=== PATIENT | female | born 1950 | race Caucasian/White ===

== ENCOUNTER 2017-10-19 14:01 | Outpatient (CLI) | payer MEDICARE, BC | END 2017-10-19 14:02 | disposition home or self-care (01) | LOC: BICBD 14:01 | PROVIDERS: ATTEND Internal Medicine Rheumatology | DX: M81.0 Age-related osteoporosis without current pathological fracture (principal); M85.80 Other specified disorders of bone density and structure, unspecified site | CPT/HCPCS: 77080 ==

== ENCOUNTER 2017-11-08 15:52 | Outpatient (CLI) | payer MEDICARE, BC | END 2017-11-08 15:53 | disposition home or self-care (01) | LOC: BICRAD 15:52 | PROVIDERS: ATTEND Internal Medicine Rheumatology | DX: M06.832 Other specified rheumatoid arthritis, left wrist (principal); M25.432 Effusion, left wrist; S63.072A Subluxation of distal end of left ulna, initial encounter; M11.232 Other chondrocalcinosis, left wrist ==

== ENCOUNTER 2018-04-21 13:47 | Outpatient (CLI) | payer MEDICARE, BC | END 2018-04-21 13:48 | disposition home or self-care (01) | LOC: BICMAMMO 13:47 | PROVIDERS: ATTEND Internal Medicine | DX: Z12.31 Encounter for screening mammogram for malignant neoplasm of breast (principal) | CPT/HCPCS: 77063; 77067 ==

== ENCOUNTER 2019-07-24 05:40 | Day surgery (SDC) | payer MEDICARE, BC ==
[2019-07-21 12:27] VITALS: BMI 20.9
[2019-07-24] MEDS ORDERED: Fentanyl 250 MCG/5 ML VIAL ONE (06:49)
[2019-07-24] MEDS ORDERED: Thrombin 5000 UNITS/5 ML VIAL ONE (07:06)
[2019-07-24] MEDS ORDERED: Bupivacaine HCl 0.5%/Epinephrine 1:200,000/PF 30 ml Vial ONE (07:06)
[2019-07-24] MEDS ORDERED: Fentanyl 100 MCG/2 ML VIAL ONE (08:46)
--- NOTE | 2019-07-24 10:19 | OP ---
DATE OF PROCEDURE: 07/24/2019 [employer] SERGEANT: Chava Crowder PA-C INDICATION: Pain. DIAGNOSIS: Lumbar stenosis. PROCEDURE PERFORMED: L4-L5 lumbar decompression. ANESTHESIA: General. DESCRIPTION OF PROCEDURE: The patient was brought into the operating room and placed under general anesthesia. She was flipped from the supine to prone position on the operating room table. A linear incision was planned over the L4-L5 segment. After prepping and draping and after an appropriate preoperative pause, the incision was created. The soft tissues were swept away from midline. Self-retaining retractors were placed in the wound for optimal exposure. After confirming the appropriate level with C-arm fluoroscopy, an Adson rongeur was used to remove the spinous process along the inferior aspect of L4 and the superior aspect of L5. A high-speed cutting drill bit as well as 2, 3, and 4 mm Kerrisons were used to complete the laminectomy at this segment. The laminectomy was extended laterally to encompass the medial third of the facet joints bilaterally in order to adequately decompress the lateral recesses. After decompressing the L4-L5 segment, the wound was irrigated. Hemostasis was maintained throughout. The wound was then closed in anatomic layers and a pressure dressing was applied. There were no known procedural complications. Job ID: [id number]
[2019-07-24] MEDS ORDERED: HYDROcodone/Acetaminophen 5/325 mg Tablet ONE (12:22)
[2019-07-24] MEDS ORDERED: Lidocaine 1% PF 5 ML VIAL ONE (12:36)
[2019-07-24] MEDS ORDERED: PHENYLEPHRINE-NS 100 MCG/ML 10 ML SYRINGE ONE (12:36)
[2019-07-24] MEDS ORDERED: Dexamethasone 20 MG/5 ML VIAL ONE (12:36)
[2019-07-24] MEDS ORDERED: Ondansetron PF 4 MG/2 ML Vial ONE (12:36)
[2019-07-24] MEDS ORDERED: PROPOFOL 200 MG/20 ML VIAL ONE (12:36)
[2019-07-24] MEDS ORDERED: Glycopyrrolate 0.2 MG/ML 5 ML SYRINGE ONE (12:36)
[2019-07-24] MEDS ORDERED: Rocuronium Bromide 10 MG/ML (10ML VIAL) ONE (12:36)
== END 2019-07-24 12:30 | disposition home or self-care (01) ==
LOC: SDC 05:40
PROVIDERS: ATTEND Neurological Surgery
PROC: 01NB0ZZ Release Lumbar Nerve, Open Approach (ICD-10-PCS; principal; 2019-07-24)
DX: M48.062 Spinal stenosis, lumbar region with neurogenic claudication (principal)
CPT/HCPCS: 76000; J0670; J0690; J1100; J2001; J2405; J2704; J3010

== ENCOUNTER 2019-09-18 12:24 | Outpatient (CLI) | payer MEDICARE, BC ==
--- NOTE | 2019-09-18 13:47 | CT ---
EXAM: CT Pelvis WO Con PROVIDED CLINICAL HISTORY: Pelvic fracture. Pain the region of the symphysis pubis. COMPARISON: MRI lumbar spine on 05/25/2019 and views right hip on 08/23/2019. FINDINGS: There is a nondisplaced fracture involving the right superior pubic ramus with adjacent sclerosis wit h adjacent increased density focus which may related to minimal callus formation about the fracture. There are also evidence of 2 separate healing fractures involving the right inferior pubic ramus 1 which is near the junction with the right pubic bone. Prominent degenerative changes are seen involving the pubic symphysis. No additional pelvic fracture is appreciated, and there is no evidence of a hip dislocation. No hip fracture is seen. There is mild bilateral hip osteoarthritis present. There is a burst fracture involving the L5 vertebral body with retropulsion of the posterior superior endplate at this level. There is also evidence of fractures involving the inferior L4 facets. There is resultant grade 1 anterolisthesis of L4 on L5. There is evidence of a laminectomy defect at the L4-5 level with decreased density seen posterior to thecal sac probably related to scarring. 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 Vascular calcifications are seen in the abdominal aorta and involving the iliac arteries. There is atrophy and fatty replacement of the gluteal musculature bilaterally. Urinary bladder is incompletely distended. IMPRESSION: 1. Healing nondisplaced fractures of the right superior and inferior pubic rami. 2. Burst fracture L5 vertebral body as well as fractures involving the inferior facets of the L4 vert ebral body and resultant grade 1 anterolisthesis of L4 on L5. These findings were seen on MRI lumbar spine on 05/25/2019, but the degree of anterolisthesis of L4 on L5 that does appear progressed w hen compared to the prior study with degree of anterolisthesis measuring approximately 8 mm.
== END 2019-09-18 12:25 | disposition home or self-care (01) ==
LOC: SCSCT 12:24
PROVIDERS: ATTEND Neurological Surgery
DX: S32.511D Fracture of superior rim of right pubis, subsequent encounter for fracture with routine healing (principal); S32.591D Other specified fracture of right pubis, subsequent encounter for fracture with routine healing; S32.051D Stable burst fracture of fifth lumbar vertebra, subsequent encounter for fracture with routine healing; S32.041D Stable burst fracture of fourth lumbar vertebra, subsequent encounter for fracture with routine healing; M43.16 Spondylolisthesis, lumbar region
CPT/HCPCS: 72192

== ENCOUNTER 2019-11-15 10:43 | Outpatient (CLI) | payer MEDICARE, BC ==
--- NOTE | 2019-11-15 11:41 | MMO ---
Bilateral MAMMO Bilat Screen [facility]. CLINICAL HISTORY: Patient is 69 years old and is seen for screening. VIEWS: The views performed were: . FILMS COMPARED: The present examination has been compared to a prior imaging study performed at [facility] on 04/21/2018. This study has been interpreted with the assistance of computer-aided detection. MAMMOGRAM FINDINGS: There are scattered fibroglandular densities. There are no suspicious masses, suspicious calcifications, or new areas of architectural distortion. IMPRESSION: THERE IS NO MAMMOGRAPHIC EVIDENCE OF MALIGNANCY. A ROUTINE FOLLOW-UP MAMMOGRAM IN 1 YEAR IS RECOMMENDED. THE RESULTS OF THIS EXAM WERE SENT TO THE PATIENT. ACR BI-RADS Category 1 - Negative MAMMOGRAPHY NOTE: 1. A negative mammogram report should not delay a biopsy if a dominant of clinically suspicious mass is present. 2. Approximately 10% to 15% of breast cancers are not detected by mammography. 3. Adenosis and dense breasts may obscure an underlying neoplasm. Reported by: PETRA CONTRERAS MD Electonically Signed: [id number]
--- NOTE | 2019-11-15 12:07 | BD ---
EXAM: DEXA bone density examination HISTORY: 69-year-old postmenopausal female for screening COMPARISON: None FINDINGS: L1--bone mineral density 0.809 g/sq cm; T score -1.6 L2--bone mineral density 0.999 g/sq cm; T score -0.3 L3--bone mineral density 1.076 g/sq cm; T score -0.1 L4--bone mineral density 0.936 g/sq cm; T score -1.1 Total L1-L4--bone mineral density 0.950 g/sq cm; T score -0.9 Right femoral neck--bone mineral density0.675; T score -1.6 Total proximal right femur--bone mineral density 0.792; T score -1.2 Left femoral neck--bone mineral density0.637; T score -1.9 Total proximal left femur--bone mineral density 0.771; T score -1.4 IMPRESSION: Osteopenia. This patient has a 10 year WHO fracture risk of a major osteoporotic fracture of 20% and of a hip fracture of 3.6%.
== END 2019-11-15 10:44 | disposition home or self-care (01) ==
LOC: BICMAMMO 10:43
PROVIDERS: ATTEND Internal Medicine Rheumatology
DX: Z12.31 Encounter for screening mammogram for malignant neoplasm of breast (principal); M81.0 Age-related osteoporosis without current pathological fracture; M05.79 Rheumatoid arthritis with rheumatoid factor of multiple sites without organ or systems involvement; M85.89 Other specified disorders of bone density and structure, multiple sites
CPT/HCPCS: 77063; 77067; 77080

== ENCOUNTER 2021-11-19 10:53 | Outpatient (CLI) | payer MEDICARE, BC | END 2021-11-19 10:54 | disposition home or self-care (01) | LOC: BICMAMMO 10:53 | PROVIDERS: ATTEND Internal Medicine Rheumatology | DX: M81.0 Age-related osteoporosis without current pathological fracture (principal); M85.851 Other specified disorders of bone density and structure, right thigh; M85.852 Other specified disorders of bone density and structure, left thigh | CPT/HCPCS: 77080 ==

== ENCOUNTER 2024-10-08 18:15 | Inpatient (IN) | payer MEDICARE, BC ==
[2024-10-08 18:56] LABS: Hemoglobin 13.6 g/dL (12.0-16.0); Mean Corpuscular HGB CONC 31.6 g/dL (32.0-36.0); Mean Corpuscular Hemoglobin 27.1 pg (27.0-31.0); Mean Corpuscular Volume 85.7 fL (78.0-98.0); Mean Platelet Volume 9.7 fL (7.4-10.4); Platelet Count 255 10x3/uL (130-400); RBC Distribution Width 14.2 % (11.5-14.5); Red Blood Cell (RBC) Count 5.02 mill/uL (4.20-5.40)
[2024-10-08 18:59] LABS: INR-International Normal Ratio 1.1; PTT 32.3 sec (22.9-36.1); Prothrombin Time 13.7 sec (12.0-14.7)
[2024-10-08 19:06] LABS: ALT (SGPT) 11 U/L (8-55); AST (SGOT) 12 U/L (5-34); Albumin 3.1 g/dL (3.4-4.8); Alkaline Phosphatase 141 U/L (40-110); Anion Gap 16 mmol/L (10-20); BUN (Urea Nitrogen) 22 mg/dL (9.8-20.1); Bilirubin, Total 0.4 mg/dL (0.2-1.2); Calc. Creatinine Clearance 0 mL/min (70-130); Calcium 8.8 mg/dL (7.8-10.44); Carbon Dioxide 27 mmol/L (23-31); Chloride 100 mmol/L (98-107); Estimated GFR 97; Globulin 3.4 g/dL (2.4-3.5); Glucose 103 mg/dL (83-110); Magnesium 2.1 mg/dL (1.6-2.6); Potassium 3.3 mmol/L (3.5-5.1); Protein, Total 6.5 g/dL (5.8-8.1); Sodium 140 mmol/L (136-145)
[2024-10-08 19:09] LABS: Troponin I 0.042 ng/mL (< 0.028)
[2024-10-08 19:27] LABS: Anisocytosis SLIGHT = 6-15 cells HPF (0-5); Large Platelets 3.9 % (0-5); Lymphocytes 8 % (21-51); Monocytes 8 % (0-10); Neutrophil 84 % (42-75); Ovalocytes SLIGHT = 2-5 cells HPF (0-1); Platelet Adequacy Comment Platelets Normal; Polychromasia SLIGHT = 2-3 cells HPF (0-2)
[2024-10-08] MEDS ORDERED: Lactated Ringer's 1,000 ML IV SCH ×2 (20:15→21:00)
[2024-10-08] MEDS ORDERED: Aspirin Chewable 81 MG TAB ONE (20:19)
[2024-10-08] MEDS: Potassium Chloride 20 MEQ TAB PO SCH (21:57)
[2024-10-08 22:31] LABS: Troponin I 0.052 ng/mL (< 0.028)
[2024-10-09 01:08] LABS: Troponin I 0.054 ng/mL (< 0.028)
[2024-10-09] MEDS: Acetaminophen 325 MG TAB PO PRN (03:41)
[2024-10-09] MEDS: Albuterol 200 PUFF (6.7GM INHALER) INH PRN (03:51)
[2024-10-09 03:59] VITALS: BMI 17.4
[2024-10-09 04:20] LABS: #Basophils 0.05 10x3/uL (0.0-0.2); %Basophils 0.7 % (0.0-1.0); %Eosinophils 1.6 % (0.0-10.0); %Lymphocytes 18.5 % (21.0-51.0); %Monocytes 10.6 % (0.0-10.0); %Neutrophils 68.2 % (42.0-75.0); Hematocrit 41.2 % (36.0-47.0); Hemoglobin 13.1 g/dL (12.0-16.0); Mean Corpuscular HGB CONC 31.8 g/dL (32.0-36.0); Mean Corpuscular Hemoglobin 27.6 pg (27.0-31.0); Mean Corpuscular Volume 86.7 fL (78.0-98.0); Mean Platelet Volume 9.6 fL (7.4-10.4); Platelet Count 278 10x3/uL (130-400); RBC Distribution Width 14.1 % (11.5-14.5); Red Blood Cell (RBC) Count 4.75 mill/uL (4.20-5.40)
[2024-10-09 04:41] LABS: Anion Gap 14 mmol/L (10-20); BUN (Urea Nitrogen) 23 mg/dL (9.8-20.1); Calc. Creatinine Clearance 68 mL/min (70-130); Carbon Dioxide 25 mmol/L (23-31); Chloride 103 mmol/L (98-107); Potassium 3.4 mmol/L (3.5-5.1); Sodium 139 mmol/L (136-145)
[2024-10-09 04:42] LABS: ALT (SGPT) 10 U/L (8-55); AST (SGOT) 12 U/L (5-34); Albumin 2.8 g/dL (3.4-4.8); Alkaline Phosphatase 130 U/L (40-110); Bilirubin, Total 0.4 mg/dL (0.2-1.2); Calcium 8.5 mg/dL (7.8-10.44); Estimated GFR 99; Globulin 3.2 g/dL (2.4-3.5); Glucose 110 mg/dL (83-110)
[2024-10-09 05:19] LABS: Bacteria/HPF 3+ HPF (None Seen); Bilirubin Negative (Negative); Blood, Urine Negative (Negative); CAUTI Indications for Culture Pelvic or flank pain; Clarity Turbid (Clear); Glucose, Urine (Dipstick) Normal (Negative); Ketone, Urine 20 mg/dL (Negative); Leukocyte 75 Leu/uL (Negative); Nitrite 2+ (Negative); Protein, Urine (Dipstick) 50 mg/dL (Neg-Trace); RBC/HPF 0-3 HPF (0-3); Specific Gravity, Urine 1.034 (1.002-1.036); Urobilinogen 3 mg/dL (Less than 2); pH, Urine 6.5 (5.0-9.0)
[2024-10-09 05:20] LABS: Urine Culture Reflex No No
[2024-10-09] MEDS: Potassium Chloride 20 MEQ TAB PO SCH (06:14)
[2024-10-09] MEDS: Leflunomide 10 mg Tablet PO SCH (10:04)
[2024-10-09] MEDS: Enoxaparin 40 MG (0.4 mL) SYRINGE SC SCH (10:05)
[2024-10-09] MEDS: Polyethylene Glycol 3350 17 GM Packet PO SCH (10:05)
[2024-10-09] MEDS: Pregabalin 50 MG CAP PO SCH (10:05)
[2024-10-09] MEDS: traMADol HCl 50 MG TAB PO SCH (10:06)
[2024-10-09] MEDS: Sertraline 100 MG TAB PO SCH (10:07)
[2024-10-09] MEDS: Amlodipine 10 MG TAB PO SCH (10:07)
[2024-10-09] MEDS: Ferrous Sulfate 325 MG TAB PO SCH (10:07)
[2024-10-09] MEDS: Pramipexole Di-HCl 0.25 MG TAB PO SCH (10:07)
[2024-10-09] MEDS: Gabapentin 300 MG CAP PO SCH (10:08)
[2024-10-09] MEDS: Atorvastatin Calcium 10 MG TAB PO SCH (10:08)
[2024-10-09] MEDS: Pantoprazole DR 40 MG TAB PO SCH (10:08)
[2024-10-09] MEDS: Diclofenac 1% 50 GM TOPICAL GEL TP SCH (10:09)
[2024-10-09] MEDS: Lorazepam 2 MG/ML VIAL SLOW IVP SCH (15:42)
[2024-10-09] MEDS ORDERED: hydrALAZINE 20 MG/ML VIAL SLOW IVP PRN (18:11)
[2024-10-09] MEDS: Amitriptyline HCl 100 MG TAB PO SCH (20:56)
[2024-10-10 04:53] LABS: ALT (SGPT) 13 U/L (8-55); AST (SGOT) 18 U/L (5-34); Albumin 2.9 g/dL (3.4-4.8); Alkaline Phosphatase 136 U/L (40-110); Anion Gap 14 mmol/L (10-20); BUN (Urea Nitrogen) 17 mg/dL (9.8-20.1); Bilirubin, Total 0.4 mg/dL (0.2-1.2); Calc. Creatinine Clearance 81 mL/min (70-130); Calcium 8.6 mg/dL (7.8-10.44); Carbon Dioxide 23 mmol/L (23-31); Chloride 104 mmol/L (98-107); Estimated GFR 103; Globulin 3.2 g/dL (2.4-3.5); Glucose 95 mg/dL (83-110); Potassium 4.2 mmol/L (3.5-5.1); Protein, Total 6.1 g/dL (5.8-8.1); Sodium 137 mmol/L (136-145)
[2024-10-10] MEDS: Multivitamin W/ Minerals 1 TAB PO SCH (09:28)
[2024-10-10] MEDS: Enoxaparin 30 MG (0.3 mL) SYRINGE SC SCH (09:30)
[2024-10-10] MEDS: Losartan 25 MG TAB PO SCH (09:34)
[2024-10-11 02:18] LABS: #Basophils 0.03 10x3/uL (0.0-0.2); %Basophils 0.5 % (0.0-1.0); %Eosinophils 2.7 % (0.0-10.0); %Lymphocytes 23.9 % (21.0-51.0); %Monocytes 11.3 % (0.0-10.0); %Neutrophils 61.3 % (42.0-75.0); Hematocrit 39.7 % (36.0-47.0); Hemoglobin 12.5 g/dL (12.0-16.0); Mean Corpuscular HGB CONC 31.5 g/dL (32.0-36.0); Mean Corpuscular Hemoglobin 27.4 pg (27.0-31.0); Mean Corpuscular Volume 87.1 fL (78.0-98.0); Mean Platelet Volume 9.7 fL (7.4-10.4); Platelet Count 249 10x3/uL (130-400); RBC Distribution Width 14.1 % (11.5-14.5); Red Blood Cell (RBC) Count 4.56 mill/uL (4.20-5.40)
[2024-10-11 02:40] LABS: Troponin I 0.187 ng/mL (< 0.028)
[2024-10-11 02:55] LABS: Chloride 103 mmol/L (98-107); Sodium 137 mmol/L (136-145)
[2024-10-11 02:56] LABS: Albumin 2.7 g/dL (3.4-4.8); Calcium 8.3 mg/dL (7.8-10.44); Glucose 75 mg/dL (83-110)
[2024-10-11 02:57] LABS: Globulin 2.9 g/dL (2.4-3.5); Protein, Total 5.6 g/dL (5.8-8.1)
[2024-10-11 02:58] LABS: Anion Gap 16 mmol/L (10-20); Carbon Dioxide 22 mmol/L (23-31)
[2024-10-11 02:59] LABS: Alkaline Phosphatase 121 U/L (40-110); Bilirubin, Total 0.3 mg/dL (0.2-1.2)
[2024-10-11 03:00] LABS: BUN (Urea Nitrogen) 22 mg/dL (9.8-20.1); Calc. Creatinine Clearance 70 mL/min (70-130); Estimated GFR 99
[2024-10-11 03:02] LABS: ALT (SGPT) 10 U/L (8-55); AST (SGOT) 14 U/L (5-34)
[2024-10-11] MEDS: Enoxaparin 40 MG (0.4 mL) SYRINGE SC SCH ×2 (03:23→16:28)
[2024-10-11 05:34] LABS: Troponin I 0.194 ng/mL (< 0.028)
[2024-10-11 09:09] LABS: Troponin I 0.215 ng/mL (< 0.028)
[2024-10-11] MEDS: Aspirin 81 mg Enteric Coated Tablet PO SCH (09:11)
[2024-10-11] MEDS: Isosorbide Mononitrate 30 MG ER.TAB PO SCH (09:11)
[2024-10-11] MEDS: Lactated Ringer's 500 ML IV SCH (15:08)
[2024-10-11] MEDS: Lactated Ringer's 1,000 ML IV SCH ×2 (15:42→18:35)
[2024-10-11] MEDS ORDERED: Communication Order-Pharmacy FS SCH (16:00)
[2024-10-11] MEDS ORDERED: Enoxaparin 40 MG (0.4 mL) SYRINGE SC SCH (21:00)
[2024-10-11] MEDS ORDERED: Enoxaparin 30 MG (0.3 mL) SYRINGE SC SCH (21:00)
[2024-10-12 06:49] LABS: ALT (SGPT) 10 U/L (8-55); AST (SGOT) 18 U/L (5-34); Albumin 2.6 g/dL (3.4-4.8); Alkaline Phosphatase 119 U/L (40-110); Anion Gap 11 mmol/L (10-20); BUN (Urea Nitrogen) 26 mg/dL (9.8-20.1); Bilirubin, Total 0.3 mg/dL (0.2-1.2); Calc. Creatinine Clearance 74 mL/min (70-130); Carbon Dioxide 24 mmol/L (23-31); Chloride 105 mmol/L (98-107); Estimated GFR 99; Globulin 2.7 g/dL (2.4-3.5); Glucose 98 mg/dL (83-110); Potassium 3.9 mmol/L (3.5-5.1); Protein, Total 5.3 g/dL (5.8-8.1); Sodium 136 mmol/L (136-145)
[2024-10-12] MEDS ORDERED: Amlodipine 5 MG TAB PO SCH (09:00)
[2024-10-12] MEDS: Aspirin 81 mg Enteric Coated Tablet PO SCH (10:34)
[2024-10-12] MEDS ORDERED: Heparin 10,000 UNITS/ 10 ML VIAL ONE (12:07)
[2024-10-12] MEDS ORDERED: Nitroglycerin 50 MG/250 ML BOT 0 ML ONE (12:08)
[2024-10-12] MEDS: Ferrous Sulfate 325 MG TAB PO SCH (15:26)
[2024-10-12] MEDS: Isosorbide Mononitrate 30 MG ER.TAB PO SCH (15:27)
[2024-10-12 18:29] VITALS: BMI 17.9
[2024-10-12] MEDS: HYDROcodone/Acetaminophen 5/325 mg Tablet PO PRN (21:01)
[2024-10-13 04:34] LABS: #Basophils 0.04 10x3/uL (0.0-0.2); %Basophils 0.4 % (0.0-1.0); %Eosinophils 1.4 % (0.0-10.0); %Lymphocytes 11.5 % (21.0-51.0); %Monocytes 9.5 % (0.0-10.0); %Neutrophils 76.6 % (42.0-75.0); Hemoglobin 10.7 g/dL (12.0-16.0); Mean Corpuscular HGB CONC 31.5 g/dL (32.0-36.0); Mean Corpuscular Hemoglobin 27.2 pg (27.0-31.0); Mean Corpuscular Volume 86.3 fL (78.0-98.0); Mean Platelet Volume 10.3 fL (7.4-10.4); Platelet Count 254 10x3/uL (130-400); RBC Distribution Width 14.1 % (11.5-14.5); Red Blood Cell (RBC) Count 3.94 mill/uL (4.20-5.40)
[2024-10-13 05:25] LABS: ALT (SGPT) 10 U/L (8-55); AST (SGOT) 15 U/L (5-34); Albumin 2.3 g/dL (3.4-4.8); Alkaline Phosphatase 106 U/L (40-110); Anion Gap 13 mmol/L (10-20); BUN (Urea Nitrogen) 12 mg/dL (9.8-20.1); Bilirubin, Total 0.4 mg/dL (0.2-1.2); Calc. Creatinine Clearance 84 mL/min (70-130); Calcium 7.8 mg/dL (7.8-10.44); Carbon Dioxide 24 mmol/L (23-31); Chloride 101 mmol/L (98-107); Estimated GFR 103; Globulin 2.5 g/dL (2.4-3.5); Glucose 82 mg/dL (83-110); Potassium 3.9 mmol/L (3.5-5.1); Protein, Total 4.8 g/dL (5.8-8.1); Sodium 134 mmol/L (136-145)
[2024-10-13] MEDS: Isosorbide Mononitrate 30 MG ER.TAB PO SCH (09:28)
[2024-10-13] MEDS: Clopidogrel Bisulfate 75 MG TAB PO SCH (09:29)
[2024-10-14 06:09] LABS: ALT (SGPT) 9 U/L (8-55); AST (SGOT) 15 U/L (5-34); Albumin 2.2 g/dL (3.4-4.8); Alkaline Phosphatase 101 U/L (40-110); Anion Gap 14 mmol/L (10-20); BUN (Urea Nitrogen) 13 mg/dL (9.8-20.1); Bilirubin, Total 0.3 mg/dL (0.2-1.2); Calc. Creatinine Clearance 86 mL/min (70-130); Calcium 7.8 mg/dL (7.8-10.44); Carbon Dioxide 25 mmol/L (23-31); Chloride 103 mmol/L (98-107); Estimated GFR 102; Globulin 2.7 g/dL (2.4-3.5); Glucose 85 mg/dL (83-110); Potassium 3.9 mmol/L (3.5-5.1); Protein, Total 4.9 g/dL (5.8-8.1); Sodium 138 mmol/L (136-145)
[2024-10-14] MEDS ORDERED: BUPRENORPHINE 7.5 MG TD SCH (09:00)
[2024-10-14 15:41] VITALS: BP 117/76
[2024-10-14 15:54] VITALS: TEMP 98.8
== END 2024-10-14 17:10 | DRG 556 ==
LOC: ERS 18:15 → 2NO 19:53 → OBSVTOIN 10-09 09:14
PROVIDERS: ADMIT Student in an Organized Health Care Education/Training Program; ATTEND Student in an Organized Health Care Education/Training Program
DX: M25.552 Pain in left hip (principal); R64 Cachexia; S32.511A Fracture of superior rim of right pubis, initial encounter for closed fracture; Z68.1 Body mass index [BMI] 19.9 or less, adult; R94.31 Abnormal electrocardiogram [ECG] [EKG]; I10 Essential (primary) hypertension; G89.29 Other chronic pain; E78.5 Hyperlipidemia, unspecified; J44.9 Chronic obstructive pulmonary disease, unspecified; G25.81 Restless legs syndrome; E87.6 Hypokalemia; M47.816 Spondylosis without myelopathy or radiculopathy, lumbar region; M06.9 Rheumatoid arthritis, unspecified; G62.9 Polyneuropathy, unspecified; M81.0 Age-related osteoporosis without current pathological fracture; R53.83 Other fatigue; M41.9 Scoliosis, unspecified; M48.061 Spinal stenosis, lumbar region without neurogenic claudication; Z66 Do not resuscitate; W19.XXXA Unspecified fall, initial encounter; Z53.8 Procedure and treatment not carried out for other reasons
CPT/HCPCS: 36415; 36416; 72192; 80053; 81001; 83735; 84484; 85025; 85610; 85730; 87077; 87086; 87186; 93005; 93010; 93306; G0378; J1644; J1650; J2060; J7120

== ENCOUNTER 2025-04-17 11:24 | Outpatient (CLI) | payer MEDICARE, BC | END 2025-04-17 11:25 | disposition home or self-care (01) | LOC: BICMAMMO 11:24 | PROVIDERS: ATTEND Internal Medicine Rheumatology | DX: M81.0 Age-related osteoporosis without current pathological fracture (principal) | CPT/HCPCS: 77080 ==